=== PATIENT | male | born 1960 | race Caucasian/White ===

== ENCOUNTER → 2019-04-16 | Day surgery (SDC) | payer BC, OTHER ==
[~2019-04-16] MED LIST: Lactated Ringers 1,000 ML IV SCH; Propofol 200 MG/20 ML SDV IV ONE
[2019-04-16 12:19] VITALS: BP 101/52; PULSE 63
--- NOTE | 2019-04-16 14:48 | OR ---
DATE OF OPERATION: 04/16/2019 PREOPERATIVE DIAGNOSIS: HISTORY OF POLYPS. POSTOPERATIVE DIAGNOSIS: HISTORY OF POLYPS. SURGEON: Franklyn Evangelista MD PROCEDURE: FULL-LENGTH COLONOSCOPY WITH SNARE POLYPECTOMY X2. ANESTHESIA: MAC via BLANK DRILLER. COMPLICATIONS: None. SPECIMEN: 1. Villous polyp, proximal ascending colon. 2. Small sessile polyps, sigmoid colon. RECOMMENDATIONS: Followup colonoscopy in 3 years. INDICATIONS: The patient has prior history of colonoscopy with polyps removed. He is in for a routine followup. DESCRIPTION OF PROCEDURE: The patient was prepped and draped, placed in the left lateral decubitus position. A lubricated Olympus colonoscope was inserted and easily advanced to the cecum. We were able to directly visualize the ileocecal valve and appendiceal orifice. The bowel prep was adequate. Liquid stool present in much of the left colon, but easily suctionable. In the proximal to mid ascending colon, the patient had a villous adenoma approximately a cm in size, flat, removed via snare with 2 separate portions without any complication. Both were suctioned into polyp trap #1. The rest of the ascending and transverse colon were completely benign. The patient does have scattered diverticula throughout most of the left colon extending from the distal descending colon all way to the rectosigmoid junction, mild to moderate in severity. At around 60 cm, the patient had the second small tubular adenoma removed with a snare and suctioned into polyp trap #2 without complication. The rectal vault appeared benign. Retroflexion of the scope in the rectum showed no anal lesions. There were no other signs of vascular abnormality, colitis, etc. Air was suctioned from the colon and the scope removed without complication. JORGE/JORGE A /[id number]
== END ==
LOC: CC.SDS 09:32
PROVIDERS: ATTEND Family Medicine
DX: Z12.11 Encounter for screening for malignant neoplasm of colon (principal); D12.2 Benign neoplasm of ascending colon; K63.5 Polyp of colon; K57.30 Diverticulosis of large intestine without perforation or abscess without bleeding; I10 Essential (primary) hypertension; E78.5 Hyperlipidemia, unspecified; E55.9 Vitamin D deficiency, unspecified; N40.1 Benign prostatic hyperplasia with lower urinary tract symptoms; M19.90 Unspecified osteoarthritis, unspecified site; Z86.010 Personal history of colon polyps; Z86.73 Personal history of transient ischemic attack (TIA), and cerebral infarction without residual deficits; Z79.82 Long term (current) use of aspirin; Z79.899 Other long term (current) drug therapy
CPT/HCPCS: 00812; 45385; J2704; J7120

== ENCOUNTER → 2022-03-01 | Day surgery (SDC) | payer BC ==
[~2022-03-01] MED LIST changes: +Ketamine 200 MG/20 ML MDV ONE; -Propofol 200 MG/20 ML SDV IV ONE; +Propofol 200 MG/20 ML SDV ONE
[2022-03-01 13:15] VITALS: BP 115/56; PULSE 54
== END ==
LOC: CC.SDS 11:02
PROVIDERS: ATTEND Family Medicine
DX: Z12.11 Encounter for screening for malignant neoplasm of colon (principal); K57.30 Diverticulosis of large intestine without perforation or abscess without bleeding; I10 Essential (primary) hypertension; E78.5 Hyperlipidemia, unspecified; E55.9 Vitamin D deficiency, unspecified; M19.90 Unspecified osteoarthritis, unspecified site; K21.9 Gastro-esophageal reflux disease without esophagitis; N40.1 Benign prostatic hyperplasia with lower urinary tract symptoms; E66.01 Morbid (severe) obesity due to excess calories; Z79.82 Long term (current) use of aspirin; Z79.899 Other long term (current) drug therapy; Z86.010 Personal history of colon polyps; Z68.41 Body mass index [BMI] 40.0-44.9, adult
CPT/HCPCS: 00811; J2704; J7120

== ENCOUNTER 2023-06-21 10:05 | Emergency (ER) | payer BC ==
[2023-06-21] MEDS ORDERED: Ketorolac 30 MG/ML SDV IVPUSH ONE (10:28)
[2023-06-21] MEDS ORDERED: Sodium Chloride 0.9% 1,000 ML IV ONE (10:29)
[2023-06-21 10:42] LABS: BASOPHILS ABSOLUTE AUTO 0.03 10^3/uL (0.00-0.50); BASOPHILS PERCENT AUTO 0.5 % (0-1); EOSINOPHILS ABSOLUTE AUTO 0.09 10^3/uL (0.00-1.50); EOSINOPHILS PERCENT AUTO 1.4 % (0-6); HEMATOCRIT 43.9 % (42.0-52.0); HEMOGLOBIN 15.5 g/dL (14.0-18.0); LYMPHOCYTES ABSOLUTE AUTO 1.38 10^3/uL (0.60-5.00); LYMPHOCYTES PERCENT AUTO 21.9 % (24-44); MEAN CORPUSCULAR HEMOGLOBIN 29.6 pg (27.0-32.0); MEAN CORPUSCULAR HGB CONC 35.3 g/dL (32.0-36.0); MEAN CORPUSCULAR VOLUME 83.8 fL (83.0-97.0); MONOCYTES ABSOLUTE AUTO 0.77 10^3/uL (0.00-1.50); MONOCYTES PERCENT AUTO 12.2 % (0-10); NEUTROPHILS ABSOLUTE AUTO 4.04 x10^3/uL (1.80-8.00); PLATELET COUNT,PLT 243 10^3/uL (150-400); RED BLOOD CELL COUNT 5.24 x10^6/uL (4.50-6.00); WHITE BLOOD CELL COUNT,WBC 6.3 10^3/uL (4.0-11.0)
[2023-06-21 10:55] LABS: ALBUMIN 3.8 g/dL (3.4-5.0); BILIRUBIN TOTAL 0.3 mg/dL (0.0-1.0); CALCIUM 9.4 mg/dL (8.4-10.1); EST CRCL DRUG DOSING (CG) 62.43 mL/min; POTASSIUM,K 4.2 mEq/L (3.5-5.0); PROTEIN TOTAL,TP 7.5 g/dL (6.4-8.2)
[2023-06-21 11:29] LABS: APPEARANCE,URINE CLEAR (CLEAR); BILIRUBIN,URINE NEGATIVE (NEGATIVE); COLOR,URINE DARK YELLOW (YELLOW); GLUCOSE,URINE NEGATIVE (NEGATIVE); KETONES,URINE NEGATIVE (NEGATIVE); LEUKOCYTE ESTERASE,URINE NEGATIVE (NEGATIVE); NITRITE,URINE NEGATIVE (NEGATIVE); OCCULT BLOOD,URINE NEGATIVE (NEGATIVE); PH,URINE 8.5 (4.5-8.0); PROTEIN,URINE NEGATIVE (NEGATIVE)
[2023-06-21 11:35] LABS: BACTERIA,URINE NOT SEEN /HPF (NOT SEEN); EPITHELIAL CELLS,URINE NOT SEEN /HPF (NOT SEEN); RBC,URINE NOT SEEN /HPF (0-5); WBC,URINE NOT SEEN /HPF (0-5)
[2023-06-21 11:36] LABS: MUCUS,URINE NOT SEEN /HPF (NOT SEEN)
[2023-06-21 11:47] VITALS: BP 127/63; PULSE 66
[2023-06-21] MEDS ORDERED: predniSONE 20 MG Tab PO ONE ×2 (12:00)
[2023-06-21] MEDS ORDERED: Lidocaine 5% 700 MG Patch TOP ONE ×2 (12:56)
== END 2023-06-21 13:04 | disposition home or self-care (01) ==
LOC: CC.ED 10:05
DX: M43.16 Spondylolisthesis, lumbar region (principal); Z79.82 Long term (current) use of aspirin
CPT/HCPCS: 36415; 72100; 80053; 81001; 85025; 96361; 96374; 99283; 99284-25; A9270-GY; J1885; J7030; J7512

== ENCOUNTER 2024-09-15 18:28 | Emergency (ER) | payer OTHER ==
[2024-09-15 18:31] VITALS: BP 136/57; PULSE 80
[2024-09-15] MEDS: Acetaminophen 500 MG Tab PO ONE (18:40)
[2024-09-15 19:02] LABS: BASOPHILS ABSOLUTE AUTO 0.03 10^3/uL (0.00-0.50); BASOPHILS PERCENT AUTO 0.5 % (0-1); EOSINOPHILS ABSOLUTE AUTO 0.09 10^3/uL (0.00-1.50); EOSINOPHILS PERCENT AUTO 1.6 % (0-6); HEMATOCRIT 44.3 % (42.0-52.0); HEMOGLOBIN 15.2 g/dL (14.0-18.0); IMMATURE GRAN ABSOLUTE AUTO 0.01 10^3/uL (0.00-0.49); IMMATURE GRAN PERCENT AUTO 0.2 % (0.0-4.9); LYMPHOCYTES ABSOLUTE AUTO 0.76 10^3/uL (0.60-5.00); LYMPHOCYTES PERCENT AUTO 13.5 % (24-44); MEAN CORPUSCULAR HEMOGLOBIN 29.9 pg (27.0-32.0); MEAN CORPUSCULAR HGB CONC 34.3 g/dL (32.0-36.0); MEAN CORPUSCULAR VOLUME 87.2 fL (83.0-97.0); MONOCYTES ABSOLUTE AUTO 0.61 10^3/uL (0.00-1.50); MONOCYTES PERCENT AUTO 10.8 % (0-10); NEUTROPHILS ABSOLUTE AUTO 4.14 x10^3/uL (1.80-8.00); NEUTROPHILS PERCENT AUTO 73.4 % (41-71); PLATELET COUNT,PLT 176 10^3/uL (150-400); RED BLOOD CELL COUNT 5.08 x10^6/uL (4.50-6.00); WHITE BLOOD CELL COUNT,WBC 5.6 10^3/uL (4.0-11.0)
[2024-09-15 19:15] LABS: ALBUMIN 3.6 g/dL (3.4-5.0); BILIRUBIN TOTAL 0.6 mg/dL (0.0-1.0); C-REACTIVE PROTEIN 2.92 mg/dL (<=0.50); CALCIUM 8.5 mg/dL (8.4-10.1); CREATININE 1.1 mg/dL (0.7-1.3); EST CRCL DRUG DOSING (CG) 56.04 mL/min; POTASSIUM,K 4.9 mEq/L (3.5-5.0); PROTEIN TOTAL,TP 7.4 g/dL (6.4-8.2)
[2024-09-15 19:17] LABS: LACTIC ACID 1.2 mmol/L (0.4-2.0)
[2024-09-15] MEDS: Dexamethasone 4 MG/ML SDV PO ONE (20:00)
[2024-09-16] MEDS: Take Home: Amoxicillin/Clavulanate K 875-125 MG Tab, 2 Tab Pack PO ONE (09:14)
== END 2024-09-15 20:18 | disposition home or self-care (01) ==
LOC: CC.ED 18:28
DX: J06.9 Acute upper respiratory infection, unspecified (principal); B34.9 Viral infection, unspecified; I10 Essential (primary) hypertension; Z79.82 Long term (current) use of aspirin; Z79.899 Other long term (current) drug therapy
CPT/HCPCS: 36415; 71046; 80053; 83605; 85025; 86140; 87040; 87428-QW; 99285; A9270-GY; J1100